=== PATIENT | male | born 1975 | race Caucasian/White ===

== ENCOUNTER → 2021-12-04 16:15 | Outpatient (BNVA) | payer BC, SELFPAY | PROVIDERS: Family Provider Family Medicine; PCP Nurse Practitioner Family; Referring Provider Nurse Practitioner Family; Visit Provider Specialist | DX: R42 Dizziness and giddiness (principal); H05.113 Granuloma of bilateral orbits; M54.2 Cervicalgia | CPT/HCPCS: 82085; 82550; 84439; 84443; 84481; 85651; 86140; 86147; 86160; 86162; 86235; 86255; 86376 ==

== ENCOUNTER 2021-12-07 06:00 | Outpatient (RCR) | payer BC, SELFPAY | END 2021-12-26 23:59 | disposition home or self-care (01) | LOC: MPT 06:00 | PROVIDERS: Family Provider Family Medicine; PCP Nurse Practitioner Family; Visit Provider Specialist | DX: R42 Dizziness and giddiness (principal) | CPT/HCPCS: 97110; 97162 ==